=== PATIENT | female | born 1965 | race Caucasian/White ===

== ENCOUNTER 2016-12-01 15:44 | Emergency (ER) | payer BC, OTHER ==
[2016-12-01 15:52] VITALS: BP 139/94; PULSE 80; TEMP 98.3; BMI 22.3
--- NOTE | 2016-12-01 16:06 | PDOC ---
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 now with more pronounced left side neck veins. Past History - Travel Traveled outside of the country in the last 30 days: No Close contact w/someone who was outside of country & ill: No - Past Medical History Allergies/Adverse Reactions: Allergies Allergy/AdvReac Type Severity Reaction Status Date / Time No Known Allergies Allergy Verified 12/01/16 15:52 Home Medications: Ambulatory Orders NK [No Known Home Medication] 12/01/16 Other medical history: chronic back pain - Psycho/Social/Smoking Cessation Hx Suicidal Ideation: No Smoking History: Never smoked Hx Alcohol Use: No Drug/Substance Use Hx: No Review of Systems - Review of Systems Able to Perform ROS?: Yes Is the patient limited Ukrainian proficient: No Constitutional: Yes: Symptoms Reported HEENTM: Yes: Other *Physical Exam - Vital Signs Last Vital Signs Temp Pulse Resp BP Pulse Ox 98.3 F 80 16 139/94 99 12/01/16 15:47 12/01/16 15:47 12/01/16 15:47 12/01/16 15:47 12/01/16 15:47 - Physical Exam HEENT: positive: Normal ENT Inspection, Other (puncture wound to left neck. no hematoma. ) Gastrointestinal/Abdominal: positive: Normal Bowel Sounds, Soft Extremity: positive: Normal Capillary Refill, Normal Inspection, Normal Range of Motion Integumentary: positive: Normal Color, Dry, Warm Neurologic: positive: Fully Oriented, Alert, Normal Mood/Affect Progress Note - Progress Note Progress Note: A: r/o foreignbody P: soft tissue neck: no foreign body *DC/Admit/Observation/Transfer Diagnosis at time of Disposition: Injury of neck, superficial Qualifiers: Encounter type: initial encounter Qualified Code(s): S10.90XA - Unspecified superficial injury of unspecified part of neck, initial encounter - Discharge Dispostion Disposition: HOME Condition at time of disposition: Stable - Referrals Referrals: Murali Stewart MD [Primary Care Provider] - - Patient Instructions Printed Discharge Instructions: DI for Puncture Wound Additional Instructions: keep site clean and dry. follow up with your doctor as soon as possible. - Post Discharge Activity Work/School Note: Back to Work
== END 2016-12-01 16:48 | disposition home or self-care (01) ==
LOC: JERFT 15:44
DX: S11.83XA Puncture wound without foreign body of other specified part of neck, initial encounter (principal); W26.8XXA Contact with other sharp object(s), not elsewhere classified, initial encounter; Y93.89 Activity, other specified; Y92.63 Factory as the place of occurrence of the external cause; Y99.0 Civilian activity done for income or pay
CPT/HCPCS: 70360-TC; 99281-25

== ENCOUNTER 2020-12-06 04:17 | Day surgery (SDC) | payer BC ==
[2020-12-03 12:11] VITALS: BMI 22.6
[2020-12-06 08:50] VITALS: TEMP 97.8
[2020-12-06 09:34] VITALS: BP 122/79; PULSE 64
== END 2020-12-06 09:56 | disposition home or self-care (01) ==
LOC: JASU-ENDO 04:17
PROVIDERS: ATTEND Internal Medicine Gastroenterology
PROC: 0DBL8ZX Excision of Transverse Colon, Via Natural or Artificial Opening Endoscopic, Diagnostic (ICD-10-PCS; 2020-12-06)
PROC: 0DBN8ZX Excision of Sigmoid Colon, Via Natural or Artificial Opening Endoscopic, Diagnostic (ICD-10-PCS; 2020-12-06)
PROC: 0DB98ZX Excision of Duodenum, Via Natural or Artificial Opening Endoscopic, Diagnostic (ICD-10-PCS; 2020-12-06)
PROC: 0DB78ZX Excision of Stomach, Pylorus, Via Natural or Artificial Opening Endoscopic, Diagnostic (ICD-10-PCS; 2020-12-06)
PROC: 0DBP8ZX Excision of Rectum, Via Natural or Artificial Opening Endoscopic, Diagnostic (ICD-10-PCS; principal; 2020-12-06 08:00)
DX: Z12.11 Encounter for screening for malignant neoplasm of colon (principal); D12.5 Benign neoplasm of sigmoid colon; K57.30 Diverticulosis of large intestine without perforation or abscess without bleeding; K63.5 Polyp of colon; K62.89 Other specified diseases of anus and rectum; K44.9 Diaphragmatic hernia without obstruction or gangrene; K21.9 Gastro-esophageal reflux disease without esophagitis; R10.32 Left lower quadrant pain; R12 Heartburn
CPT/HCPCS: 88305-TC; 88309-TC; 88342-TC